=== PATIENT | female | born 1960 | race Caucasian/White ===

== ENCOUNTER 2018-09-05 13:50 | Emergency (ER) | payer MEDICARE, MEDICAID, SELFPAY ==
[2018-09-05 14:03] VITALS: BP 119/97; PULSE 90; RESP 18; TEMP 36.3; O2SAT 88
--- NOTE | 2018-09-05 14:18 | DI.RAD_ITS ---
SYMPTOMS/DIAGNOSIS: PERSISTENT COUGH, FEVER PA AND LATERAL CHEST: The lungs are well expanded and free of infiltrate. There is no mass. There is no pleural effusion. The heart is not enlarged. The hilar structures, mediastinum and tracheal air column are intact. Incidental note is made of a mild kyphoscoliosis of the dorsal spine. SUMMARY: No evidence of acute cardiopulmonary disease.
--- NOTE | 2018-09-05 14:18 | DI.CT_ITS ---
SYMPTOMS/DIAGNOSIS: RECURRENT SINUS INFECTIONS, FEVER SINUS CT: A noncontrast enhanced sinus CT was carried out according to the usual protocol. There is moderate mucoperiosteal thickening involving the right maxillary antrum with apparent occlusion of the ostiomeatal complex. The left maxillary antrum is unremarkable. There is mild mucoperiosteal thickening involving the ethmoid sinuses. The frontal sinus is clear. The left sphenoid air cell is unremarkable. There is a small density involving the dependent portion of the right sphenoid sinus, which could represent a tiny polyp or localized area of mucoperiosteal thickening. SUMMARY: Findings consistent with chronic right maxillary sinusitis with near complete occlusion of the right ostiomeatal complex. Elsewhere, there are relatively mild inflammatory changes involving the ethmoid and sphenoid sinus as described above. The frontal sinus appears intact. Incidental note is made of left deviation of the nasal septum. Also, postsurgical changes involving the right maxillary antrum are demonstrated. These findings were discussed with the provider in the Emergency Department immediately following completion of the study.
--- NOTE | 2018-09-05 14:23 | ED.GENADUL_ITS ---
Discharge Plan Disposition Patient Disposition: HOME Condition: Improving Discharge Details Chief Complaint: SOB Clinical Impression: COPD with acute exacerbation Primary Care Provider: Lakeisha Sawyer ED Provider: Louie Lizarraga Home Meds and New Rx's Prescriptions: New doxycycline hyclate 100 mg capsule 100 mg PO BID 10 Days Qty: 20 RF: 0 Discharge Instructions Instructions: COPD (Chronic Obstructive Pulmonary Disease) (ED) Additional Instructions: Continue your previously prescribed prednisone. Take doxycycline as prescribed. Please continue your efforts to decrease tobacco use. Follow-up with regular doctor next week for recheck. Return to the emergency department for any acute concerns Medical Decision Making 58-year-old female with a history of odontogenic recurrent sinusitis as well as COPD for which she has 2 L of oxygen at home. She is recently been treated with a course of burst of prednisone with taper, currently taking 40 mg daily. She was seen by Dr. Hurtado in his office and referred to the emergency department giving her increased respiratory rate, and expiratory wheeze and history of COPD. She arrives to emerge department with no fever, stable pulse and blood pressure with 88% sat on room air. Broad differential diagnosis considered including recurrent sinusitis, COPD exacerbation, bronchitis or pneumonia as well as influenza. Patient had IV access established, given fluid bolus, parenteral steroids, magnesium, DuoNeb updraft. Her chest x-ray does not show focal infiltrate. CT reveals chronic sinusitis without any evidence of new, acute changes. Laboratory with reassuring chemistries and CBC. Influenza testing is negative. In the patient ER, the patient slept for an hour, awoke and stated she felt better. We discussed her objective findings as well as the consideration of admission. She is in favor of outpatient management. I will treat her for atypical pathogens the question, she will continue her prednisone burst and taper, and continue her efforts to decrease tobacco use. Lab Data Lab results reviewed: Yes I reviewed the patient's lab results. Laboratory Results - last 24 hr 09/05/18 09/05/18 14:28 14:28 WBC 6.03 RBC 4.69 Hgb 13.7 Hct 43.2 MCV 92.1 MCH 29.2 MCHC 31.7 L RDW 14.3 Plt Count 337 MPV 8.3 Immature Gran % 1.3 Neutrophils % 83.1 Lymphocytes % 12.9 Monocytes % 2.3 Eosinophils % 0.2 Basophils % 0.2 Absolute Neutrophils 5.01 Absolute Lymphocytes 0.78 L Absolute Monocytes 0.14 Absolute Eosinophils 0.01 Absolute Basophils 0.01 Sodium 139 Potassium 4.0 Chloride 96 L Carbon Dioxide 37.0 H Anion Gap 6.0 BUN 12 Creatinine 0.60 Estimated GFR/1.73 m2 >= 60.00 Glucose 112 H Calcium 9.1 Magnesium 2.0 Total Bilirubin 0.2 AST 25 ALT 36 Alkaline Phosphatase 120 H Troponin I < 0.02 Total Protein 7.2 Albumin 3.5 ECG Data Attestation: I personally reviewed and interpreted this ECG (s) as follows: Interpretation: Normal sinus rhythm with a rate of 72, the QRS is narrow, days, no ST segment elevation HPI General Mode of arrival: ambulatory . Date/Time Provider Initiated Documentation: 09/05/18 14:13 . Limitations to Documentation: no limitations . Information obtained by: patient . History of Present Illness 58 year old F presents to the emergency department with the chief complaint of Cough, fever, shortness of breath, described as moderate, Quality is described as constant, and is localized to the chest. Patient reports no radiation. Patient started experiencing this day(s) and it has been constant. No relieving factors improve symptom(s), No exacerbating factors reported . Patient notes cough, fever/chills and other (Sinus pressure intermittent). HPI Narrative: Cough, fever, shortness of breath, recurrent sinus infections. Patient referred from Dr. Hurtado's office after visit for symptoms she is experiencing on and off over weeks. She did have an odontogenic source of a sinusitis that was thought to have been relieved with tooth extraction. She reports to ct weeks of antibiotics, the most recent being Augmentin which she finished approximately 2 weeks ago. Related Data Home Medications Medication Instructions Recorded Confirmed doxycycline hyclate 100 mg PO BID 10 Days #20 cap 09/05/18 Previous Rx's Medication Instructions Recorded doxycycline hyclate 100 mg PO BID 10 Days #20 cap 09/05/18 Allergies Allergy/AdvReac Type Severity Reaction Status Date / Time No Known Allergies Allergy Unverified 09/05/18 15:14 General Stated Complaint: SOB ISREAL: 3 Review of Systems Review of Systems 8 systems reviewed and otherwise neg PFSH Social History Smoking/Tobacco Use Status: Current every day Exam Narrative Exam Narrative: GEN: awake, alert, oriented 3. Pleasant, well groomed, interactive. HEAD: Normocephalic, atraumatic ENT: Mucous membranes moist, oropharynx unremarkable, External ear exam unremarkable EYES: PERRL, EOMI NECK: Full ROM, no LILIANA, no menigismus CHEST/RESP: Nontender, diminished bilaterally with end expiratory wheeze CARDIOVASCULAR: RRR, no murmur, rub ale. 2+ Rad pulse bilateral ABDOMEN: Soft, nontender, no mass. +Bowel sounds EXT: Full ROM, no edema, no rash Neuro: Grossly normal neurologic exam, conversant, interactive. Psych: Speech fluent, thoughts congruent, affect normal Course Vital Signs Temperature 36.3 C L 09/05/18 14:03 Pulse 90 09/05/18 14:03 Respiratory Rate 18 09/05/18 14:03 Blood Pressure 119/97 H 09/05/18 14:03 Pulse Oximetry 88 L 09/05/18 14:03 Temperature 36.3 C L 09/05/18 14:03 Temperature Source Skin 09/05/18 14:03 Pulse 90 09/05/18 14:03 Respiratory Rate 18 09/05/18 14:03 Blood Pressure 119/97 H 09/05/18 14:03 Blood Pressure Position Sitting 09/05/18 14:03 Pulse Oximetry 88 L 09/05/18 14:03 Oxygen Delivery Method Room Air 09/05/18 14:03 Oxygen Flow Rate 0 09/05/18 14:03
[2018-09-05 14:35] LABS: Abs Immature Grans 0.08 k/cumm (0.0-0.09); Absolute Basophil Count 0.01 k/cumm (0.0-0.2); Absolute Eosinophil Count 0.01 k/cumm (0.0-0.7); Absolute Lymphocyte Count 0.78 k/cumm (1.2-3.4); Absolute Monocyte Count 0.14 k/cumm (0.11-0.7); Absolute Neutrophil Count 5.01 k/cumm (1.2-6.7); Basophils % 0.2; Eosinophils % 0.2; HCT 43.2 % (36.0-46.0); HGB 13.7 g/dL (12.0-15.5); Immature Grans % 1.3; Lymphocytes % 12.9; Mean Corp. HGB Concentration 31.7 g/dL (32.0-36.0); Mean Corpuscular Hemoglobin 29.2 pg (27.0-33.0); Mean Corpuscular Volume 92.1 fL (80-95); Mean Platelet Volume 8.3 fL (8.0-11.0); Monocytes % 2.3; Neutrophils % 83.1; Platelet Count 337 x1000/uL (130-400); RBC 4.69 m/cumm (4.00-5.20); RBC Distribution Width 14.3 % (11.7-14.6); White Blood Cell Count 6.03 k/cumm (4.4-10.8)
[2018-09-05 14:53] LABS: ALT 36 U/L (12-78); AST 25 U/L (15-37); Albumin 3.5 g/dL (3.4-5.0); Alkaline Phosphatase 120 U/L (46-116); BUN 12 mg/dL (7-18); Bilirubin, Total 0.2 mg/dL (0.2-1.0); Calcium 9.1 mg/dL (8.5-10.1); Chloride 96 mmol/L (98-107); Glucose 112 mg/dL (70-100); Sodium 139 mmol/L (136-145); Total Protein 7.2 g/dL (6.4-8.2)
[2018-09-05 14:55] LABS: Troponin I < 0.02 ng/mL (0.00-0.06)
[2018-09-05] MEDS: MAGNESIUM SULFATE 2 GM/50 ML BAG IVPB (15:14)
[2018-09-05] MEDS: methylPREDNISolone SUCC 125 MG VIAL IVP (15:14)
[2018-09-05] MEDS: Albuterol/Ipratropium 3 ML UPD VIAL UPD (15:14)
--- NOTE | 2018-09-05 15:19 | NUR.NOTE ---
returned from DI, patient medicated per MD [email or web address] Nursing Note:
[2018-09-05 15:30] VITALS: BP 121/66; PULSE 71; RESP 24; O2SAT 88
--- NOTE | 2018-09-05 16:17 | NUR.NOTE ---
patient sleeping, easily arousal to voice. Nursing Note:
[2018-09-05 16:37] VITALS: BP 110/63; PULSE 68; O2SAT 91
--- NOTE | 2018-09-05 17:03 | NUR.NOTE ---
iv dc'd patient, duicharge and follow up instruction provided per MD orderNursing Note:
== END 2018-09-05 17:11 | disposition home or self-care (01) ==
PROVIDERS: Emergency Provider Emergency Medicine; PCP Internal Medicine
DX: J44.1 Chronic obstructive pulmonary disease with (acute) exacerbation (principal); J45.909 Unspecified asthma, uncomplicated; F17.210 Nicotine dependence, cigarettes, uncomplicated; Z99.81 Dependence on supplemental oxygen; J32.9 Chronic sinusitis, unspecified
CPT/HCPCS: 36415; 80053; 87449; 93005; 94640; 96365; 96375; 99285; 70486; 71046; 83735; 84484; 85025; 93010; 99284; J2930; J7620

== ENCOUNTER → 2024-01-15 13:07 | Outpatient (BNVA) | payer MEDICARE, MEDICAID, SELFPAY | PROVIDERS: PCP Internal Medicine; Referring Provider Internal Medicine; Visit Provider Podiatrist | DX: B35.1 Tinea unguium (principal); I73.00 Raynaud's syndrome without gangrene; G62.9 Polyneuropathy, unspecified; L60.3 Nail dystrophy; I70.203 Unspecified atherosclerosis of native arteries of extremities, bilateral legs | CPT/HCPCS: 11721; 99203 ==